=== PATIENT | female | born 1945 | race African-American/Black ===

== ENCOUNTER 2021-03-30 10:31 | Inpatient (IN) | payer MEDICARE, MEDICAID ==
[~2021-03-30] VITALS: Ht 162.6 cm; Wt 97.2 kg
[2021-03-30] MEDS ORDERED: NITROGLYCERIN OINT 1GM/INCH UDPKT TD ONE (11:00)
[2021-03-30] MEDS ORDERED: FUROSEMIDE 40MG/4ML VIAL IV ONE (11:00)
[2021-03-30 11:44] LABS: BASOPHILS % 0.8 % (0.0-2.0); EOSINOPHILS % 10.4 % (0.0-5.0); HEMOGLOBIN. 7.8 g/dL (12.0-16.0); LYMPHOCYTES % 22.2 % (20.0-50.0); MEAN CORPUSCULAR HEMOGLOBIN 25.3 pg (28.0-32.0); MEAN CORPUSCULAR VOLUME 81.6 fL (81.0-99.0); MONOCYTES % 12.5 % (2.0-8.0); NEUTROPHILS % 54.1 % (40.0-76.0); PLATELET 292 x1000/uL (130-400); RED BLOOD CELL COUNT 3.07 mill/uL (4.2-5.4); RED CELL DISTRIBUTION WIDTH 18.5 % (11.6-14.6)
[2021-03-30 11:52] LABS: CHLORIDE 110 mEq/L (98-107)
[2021-03-30 11:55] LABS: PROTHROMBIN TIME 10.9 sec (9.6-11.0)
[2021-03-30] MEDS ORDERED: POTASSIUM CHLORIDE 20MEQ TABLET SR PO ONE (12:00)
[2021-03-30 12:21] LABS: CLARITY URINE CLEAR (CLEAR); COLOR URINE YELLOW (YELLOW); KETONES URINE NEGATIVE (NEGATIVE); LEUKOCYTE ESTERASE URINE NEGATIVE (NEGATIVE); NITRITE URINE NEGATIVE (NEGATIVE); OCCULT BLOOD URINE NEGATIVE (NEGATIVE); PH URINE 5.5 (4.5-8.0); PROTEIN URINE NEGATIVE (NEGATIVE); SPECIFIC GRAVITY URINE 1.008 (1.005-1.030); UROBILINOGEN URINE 0.2 E.U./dL (0.2-1.0)
[2021-03-30] MEDS ORDERED: ASPIRIN 325MG EC TABLET PO ONE (12:30)
[2021-03-30] MEDS ORDERED: ACETAMINOPHEN 325MG TABLET PO ONE (14:15)
[2021-03-30] MEDS ORDERED: METHYLPREDNISOLONE SOD SUCC 125 MG/2 ML VIAL IV NR (15:00)
[2021-03-30] MEDS ORDERED: IPRATROPIUM/ALBUTEROL 0.5-3(2.5)MG/3ML NEB NEB PRN (15:00)
[2021-03-30] MEDS ORDERED: PERMETHRIN 5% CREAM 60GM TOP NR (15:00)
[2021-03-30] MEDS ORDERED: CLONIDINE 0.1MG TABLET PO PRN (15:00)
[2021-03-30] MEDS ORDERED: ONDANSETRON HCL 4MG/2ML INJ IV PRN (15:00)
[2021-03-30] MEDS ORDERED: LEVOFLOXACIN 500MG PREMIX 100 ML IV SCH (15:00)
[2021-03-30] MEDS ORDERED: ACETAMINOPHEN 325MG TABLET PO PRN (15:00)
[2021-03-30] MEDS ORDERED: GUAIFENESIN 200MG/10ML SUGAR FREE UDC PO PRN (15:00)
[2021-03-30 17:10] VITALS: BP 95/77
[2021-03-30 20:00] VITALS: BP 141/72
[2021-03-30 20:57] LABS: TOTAL IRON BINDING CAPACITY 365 ug/dL (250-450)
[2021-03-30 21:00] VITALS: BP 141/72
[2021-03-30] MEDS: HYDROCODONE/ACETAMINOPHEN 5/325MG TABLET PO PRN (21:35)
[2021-03-30] MEDS: METHYLPREDNISOLONE SOD SUCC 40 MG/ML VIAL IV SCH (23:26)
[2021-03-31] VITALS (11 sets, daily range): BP systolic 102–141; BP diastolic 48–72
[2021-03-31] MEDS: IPRATROPIUM/ALBUTEROL 0.5-3(2.5)MG/3ML NEB HHN SCH ×6 (01:12→20:28)
[2021-03-31 01:42] LABS: CREATINE KINASE MB FRACTION 1.4 ng/mL (0.5-3.6)
[2021-03-31] MEDS: HYDROCODONE/ACETAMINOPHEN 5/325MG TABLET PO PRN ×3 (04:37→20:33)
[2021-03-31 06:29] LABS: *AMPHETAMINES SCREEN URINE NEGATIVE (NEGATIVE); *BARBITURATES SCREEN URINE NEGATIVE (NEGATIVE); *BENZODIAZEPINES SCREEN URINE NEGATIVE (NEGATIVE); *COCAINE SCREEN URINE NEGATIVE (NEGATIVE); CANNABINOID URINE SCREEN NEGATIVE (NEGATIVE); METHADONE URINE SCREEN NEGATIVE (NEGATIVE); OPIATES URINE SCREEN PRESUMTIVE POSITIVE (NEGATIVE); PHENCYCLIDINE URINE SCREEN NEGATIVE (NEGATIVE)
[2021-03-31 06:36] LABS: BASOPHILS % 0.1 % (0.0-2.0); HEMATOCRIT. 24.4 % (36.0-48.0); HEMOGLOBIN. 7.6 g/dL (12.0-16.0); LYMPHOCYTES % 17.6 % (20.0-50.0); MEAN CORPUSCULAR HEMOGLOBIN 24.8 pg (28.0-32.0); MEAN CORPUSCULAR VOLUME 80.2 fL (81.0-99.0); MEAN PLATELET VOLUME 8.9 fl (7.4-10.4); MONOCYTES % 0.8 % (2.0-8.0); NEUTROPHILS % 81.5 % (40.0-76.0); PLATELET 268 x1000/uL (130-400); RED BLOOD CELL COUNT 3.04 mill/uL (4.2-5.4); RED CELL DISTRIBUTION WIDTH 18.9 % (11.6-14.6)
[2021-03-31 07:34] LABS: CHLORIDE 109 mEq/L (98-107)
[2021-03-31 07:44] LABS: CREATINE KINASE 107 IU/L (26-192); CREATINE KINASE MB FRACTION < 1.0 ng/mL (0.5-3.6)
[2021-03-31 08:50] LABS: BG CARBOXYHEMOGLOBIN 0.6 % (0.5-1.5); BG DEOXYHEMOGLOBIN 3.8 % (0.0-5.0); BG FRACTION INSPIRED OXYGEN 28; BG HCO3 ACT 23.2 mmol/L (22.0-26.0); BG METHEMOGLOBIN 0.5 % (0.0-1.5); BG OXYGEN SATURATION 96.2 % (92.0-98.5); BG OXYHEMOGLOBIN 95.1 % (94.0-97.0); BG PCO2 31.2 mmHg (35.0-45.0); BG PO2 79.7 mmHg (75.0-100.0); BG SAMPLE SITE LEFT RADIAL; BG TOTAL HEMOGLOBIN 6.9 g/dL (12.0-18.0); BG VENT MODE NASAL CANNULA
[2021-03-31] MEDS ORDERED: POTASSIUM CHLORIDE 20MEQ TABLET SR PO SCH (09:00)
[2021-03-31] MEDS: METHYLPREDNISOLONE SOD SUCC 40 MG/ML VIAL IV SCH ×3 (10:03→23:43)
[2021-03-31] MEDS: ASPIRIN 81MG EC TABLET PO SCH (10:04)
[2021-03-31] MEDS ORDERED: PERMETHRIN 5% CREAM 60GM TOP NR (12:00)
[2021-03-31] MEDS: FUROSEMIDE 40MG/4ML VIAL IVP SCH (12:49)
[2021-03-31 15:26] LABS: HEMATOCRIT 24.8 % (36.0-48.0); HEMOGLOBIN 7.5 g/dL (12.0-16.0)
[2021-03-31] MEDS ORDERED: LEVOFLOXACIN 500MG PREMIX 100 ML IV SCH (16:00)
[2021-03-31] MEDS: DOCUSATE SODIUM 100MG CAPSULE PO SCH (16:50)
[2021-03-31] MEDS ORDERED: LEVOFLOXACIN 250MG PREMIX 50 ML IV SCH (17:00)
[2021-03-31] MEDS: TRAMADOL 50MG TABLET PO PRN (22:19)
[2021-03-31 23:31] LABS: HEMATOCRIT 28.5 % (36.0-48.0); HEMOGLOBIN 8.7 g/dL (12.0-16.0)
[2021-03-31 23:40] LABS: INR 1.1
[2021-04-01] VITALS: BP 137/67
[2021-04-01] MEDS: IPRATROPIUM/ALBUTEROL 0.5-3(2.5)MG/3ML NEB HHN SCH ×7 (00:22→23:46)
[2021-04-01] MEDS ORDERED: NITROGLYCERIN 0.4MG TABLET SL SL PRN (02:15)
[2021-04-01 04:00] VITALS: BP 124/42
[2021-04-01] MEDS: HYDROCODONE/ACETAMINOPHEN 5/325MG TABLET PO PRN ×2 (06:07→18:09)
[2021-04-01 06:45] LABS: HEMOGLOBIN. 8.5 g/dL (12.0-16.0); MEAN CORPUSCULAR HEMOGLOBIN 25.5 pg (28.0-32.0); MEAN CORPUSCULAR VOLUME 81.1 fL (81.0-99.0); MEAN PLATELET VOLUME 8.9 fl (7.4-10.4); PLATELET 279 x1000/uL (130-400); RED BLOOD CELL COUNT 3.33 mill/uL (4.2-5.4); RED CELL DISTRIBUTION WIDTH 18.4 % (11.6-14.6)
[2021-04-01 06:56] LABS: CHLORIDE 107 mEq/L (98-107)
[2021-04-01 08:00] VITALS: BP 137/48
[2021-04-01] MEDS: METHYLPREDNISOLONE SOD SUCC 40 MG/ML VIAL IV SCH ×2 (09:31→15:38)
[2021-04-01] MEDS: FUROSEMIDE 40MG/4ML VIAL IVP SCH (09:31)
[2021-04-01] MEDS: ASPIRIN 81MG EC TABLET PO SCH (09:32)
[2021-04-01] MEDS: TRAMADOL 50MG TABLET PO PRN ×3 (09:32→23:02)
[2021-04-01] MEDS: DOCUSATE SODIUM 100MG CAPSULE PO SCH ×2 (09:32→18:05)
[2021-04-01 09:35] LABS: CREATINE KINASE MB FRACTION 1.3 ng/mL (0.5-3.6)
[2021-04-01 12:00] VITALS: BP 146/58
[2021-04-01] MEDS: METOPROLOL TARTRATE 25MG TABLET PO SCH ×2 (12:58→21:00)
[2021-04-01 13:14] LABS: NUCLEATED RED BLOOD CELLS 1 /100 WBC; PLATELET ESTIMATE NORMAL
[2021-04-01] MEDS: LEVOFLOXACIN 500MG TABLET PO SCH (15:38)
[2021-04-01 16:00] VITALS: BP 140/79
[2021-04-01] MEDS ORDERED: ASPI-1497 MT (16:32)
[2021-04-01] MEDS ORDERED: METO25TA6 PO (16:32)
[2021-04-01] MEDS ORDERED: FURO-151 MT (16:32)
[2021-04-01 20:00] VITALS: BP 129/51
[2021-04-02] VITALS: BP 159/79
[2021-04-02] MEDS: METHYLPREDNISOLONE SOD SUCC 40 MG/ML VIAL IV SCH ×2 (00:24→08:09)
[2021-04-02] MEDS: HYDROCODONE/ACETAMINOPHEN 5/325MG TABLET PO PRN ×2 (01:05→10:06)
[2021-04-02] MEDS: IPRATROPIUM/ALBUTEROL 0.5-3(2.5)MG/3ML NEB HHN SCH ×2 (03:00→08:46)
[2021-04-02 04:00] VITALS: BP 109/53
[2021-04-02 06:22] LABS: HEMATOCRIT. 28.3 % (36.0-48.0); HEMOGLOBIN. 8.7 g/dL (12.0-16.0); MEAN CORPUSCULAR VOLUME 81.4 fL (81.0-99.0); MEAN PLATELET VOLUME 8.7 fl (7.4-10.4); PLATELET 281 x1000/uL (130-400); RED BLOOD CELL COUNT 3.47 mill/uL (4.2-5.4); RED CELL DISTRIBUTION WIDTH 18.4 % (11.6-14.6)
[2021-04-02 08:00] VITALS: BP 163/85
[2021-04-02] MEDS: FUROSEMIDE 40MG/4ML VIAL IVP SCH (08:09)
[2021-04-02] MEDS: DOCUSATE SODIUM 100MG CAPSULE PO SCH (08:10)
[2021-04-02] MEDS: TRAMADOL 50MG TABLET PO PRN (08:10)
[2021-04-02] MEDS: METOPROLOL TARTRATE 25MG TABLET PO SCH (08:11)
[2021-04-02] MEDS: ASPIRIN 81MG EC TABLET PO SCH (08:11)
[2021-04-02] MEDS ORDERED: AMLODIPINE 5MG TABLET PO NR (11:30)
[2021-04-02 12:00] VITALS: BP 152/82
[2021-04-02] MEDS: LEVOFLOXACIN 500MG TABLET PO SCH (13:06)
[2021-04-02 17:03] LABS: PLATELET ESTIMATE NORMAL
[2021-04-03] MEDS ORDERED: AMLODIPINE 5MG TABLET PO SCH (09:00)
== END 2021-04-02 16:00 | disposition home or self-care (01) | DRG 291 ==
LOC: ER 10:47 → 5WST 13:34 → EDBEDREQ 13:38 → EDBEDREQTM 13:38 → ENRESERV 15:41
PROVIDERS: ADMIT Internal Medicine; ATTEND Internal Medicine
PROC: 30233N1 Transfusion of Nonautologous Red Blood Cells into Peripheral Vein, Percutaneous Approach (ICD-10-PCS; principal; 2021-03-31)
PROC: 4B02XTZ Measurement of Cardiac Defibrillator, External Approach (ICD-10-PCS; 2021-04-01)
DX: I13.0 Hypertensive heart and chronic kidney disease with heart failure and stage 1 through stage 4 chronic kidney disease, or unspecified chronic kidney disease (principal); J18.9 Pneumonia, unspecified organism; I50.41 Acute combined systolic (congestive) and diastolic (congestive) heart failure; J44.1 Chronic obstructive pulmonary disease with (acute) exacerbation; I69.351 Hemiplegia and hemiparesis following cerebral infarction affecting right dominant side; N17.9 Acute kidney failure, unspecified; J44.0 Chronic obstructive pulmonary disease with (acute) lower respiratory infection; D64.9 Anemia, unspecified; E87.6 Hypokalemia; I25.10 Atherosclerotic heart disease of native coronary artery without angina pectoris; Z96.659 Presence of unspecified artificial knee joint; R53.81 Other malaise; E66.09 Other obesity due to excess calories; B86 Scabies; N18.9 Chronic kidney disease, unspecified; I27.20 Pulmonary hypertension, unspecified; I34.0 Nonrheumatic mitral (valve) insufficiency; I49.3 Ventricular premature depolarization; Z87.891 Personal history of nicotine dependence; Z95.5 Presence of coronary angioplasty implant and graft; Z95.810 Presence of automatic (implantable) cardiac defibrillator; Z68.36 Body mass index [BMI] 36.0-36.9, adult; R53.1 Weakness
CPT/HCPCS: 36415; 36600; 71045; 80048; 80053; 80305; 81003; 82270; 82375; 82550; 82553; 82805; 83540; 83550; 83880; 84484; 85014; 85018; 85025; 85384; 86850; 86900; 86920; 93005; 93306; 93970; 94640; 97116; 97162; 99291; C1893; J1940; J1956; J2920; J2930; J7040; P9016